=== PATIENT | female | born 1980 | race Caucasian/White ===

== ENCOUNTER → 2021-04-20 | Day surgery (SDC) | payer OTHER ==
[~2021-04-20] VITALS: Ht 160 cm; Wt 70.3 kg
[~2021-04-20] MED LIST: BACTRIM DS TAB1 EACH PO; COLACE100 MG PO; IBUPROFEN800 M1 PO; KEFLEX250 MG PO; NORCO 5-325 TA1 EACH PO; PERCOCET 5-3251 EACH PO; ZOFRAN4 M1 PO
[2021-04-20 07:29] LABS: HCG (URINE) SCREEN NEGATIVE (NEGATIVE)
[2021-04-20 08:14] LABS: HCT 42.9 % (37.0-47.0); HGB 13.9 g/dl (12.5-16.0); MCH 31.3 pg (25.0-31.0); MCHC 32.4 g/dL (32.0-36.0); MCV 96.6 fL (78.0-100.0); MPV 8.8 fL (6.0-9.5); RBC 4.44 M/uL (4.20-5.40); RDW 13.1 % (11.5-14.0); WBC 11.3 K/uL (4.0-10.5)
== END | disposition home or self-care (01) ==
LOC: FAS 07:08 → EDSTATUS 08:00
PROVIDERS: Obstetrics & Gynecology
DX: N72 Inflammatory disease of cervix uteri (principal); N83.8 Other noninflammatory disorders of ovary, fallopian tube and broad ligament; N83.202 Unspecified ovarian cyst, left side; N70.11 Chronic salpingitis; K66.0 Peritoneal adhesions (postprocedural) (postinfection); F17.210 Nicotine dependence, cigarettes, uncomplicated; Z88.6 Allergy status to analgesic agent
CPT/HCPCS: 36415; 84703; 86850; 86900; 86901; J0690; J1100; J1170; J1885; J2250; J2405; J2704; J2710; J3010; J7120; Q9968